=== PATIENT | female | born 1980 | race Two or more races ===

== ENCOUNTER 2023-03-23 02:09 | Emergency (ER) | payer OTHER ==
[~2023-03-23] VITALS: Ht 162.6 cm; Wt 74.8 kg
[~2023-03-23 02:09] MED LIST: PRENATAL TABLE1 EAC2 PO; PROGESTERONE100 MG
== END 2023-03-23 04:08 | disposition home or self-care (01) ==
LOC: ER 02:09
DX: J03.80 Acute tonsillitis due to other specified organisms (principal)